=== PATIENT | male | born 1955 | race Two or more races ===

== ENCOUNTER 2019-05-04 09:35 | Emergency (ER) | payer MEDICAID ==
[~2019-05-04] VITALS: Ht 167.6 cm; Wt 83.9 kg
[2019-05-04] MEDS ORDERED: SODIUM CHLORIDE 0.9% 1,000 ML IV ONE (11:35)
[2019-05-04] MEDS ORDERED: LEVOFLOXACIN 750MG 150 ML IV ONE (12:00)
[2019-05-04 12:11] LABS: Basophils # (auto) 0 uL; Basophils % (auto) 0.2 % (0.0-2.0); Eosinophils # (auto) 0 uL; Hematocrit 46.4 % (41.0-53.0); Hemoglobin 15.8 g/dL (13.5-17.5); Lymphocytes # (auto) 0.4 uL; Lymphocytes % (auto) 4.9 % (10.0-50.0); Mean Corpuscular Hemoglobin 30.2 pg (28.0-32.0); Monocytes # (auto) 0.4 uL; Monocytes % (auto) 5.7 % (0.0-12.0); Neutrophils # (auto) 6.7 uL; Neutrophils % (auto) 89.2 % (37.0-80.0); Platelet Count (auto) 143 10^3/uL (140-450); Red Blood Cells 5.22 10^6/uL (4.5-5.90); Red Cell Distribution Width 13.3 % (11.8-14.3); White Blood Cell 7.5 10^3/uL (4.4-10.8)
[2019-05-04 12:29] LABS: Albumin 3.1 g/dL (3.4-5.0); Calcium 7.7 mg/dL (8.5-10.1); Potassium 3.5 mmol/L (3.5-5.1)
[2019-05-04 12:34] LABS: BUN/Creatinine Ratio 21.4; Bilirubin, Total 0.9 mg/dL (0.2-1.0); Total Protein 7.1 g/dL (6.4-8.2)
[2019-05-04] MEDS ORDERED: methylPREDNISolone SOD SUCC 125 MG/2 ML VL IV ONE (13:45)
[2019-05-04] MEDS ORDERED: ACETAMINOPHEN 500 MG TAB PO ONE (13:45)
[2019-05-04 14:30] VITALS: BP 112/73
== END 2019-05-04 16:40 | disposition home or self-care (01) ==
LOC: ER 09:35
DX: J20.9 Acute bronchitis, unspecified (principal); I10 Essential (primary) hypertension
CPT/HCPCS: 36415; 71045; 80053; 83605; 85025; 87040; 93005; 96365; 96366; 96375; 99284; J1956; J2930; J7030

== ENCOUNTER 2019-05-10 08:26 | Emergency (ER) | payer MEDICAID ==
[~2019-05-10] VITALS: Ht 167.6 cm; Wt 83.9 kg
[2019-05-10 09:30] LABS: Urine Bacteria NONE SEEN /hpf (None Seen); Urine Blood 1+ /uL (Negative); Urine Specific Gravity 1.006 (1.001-1.035); Urine WBC 1 /hpf (0 - 3)
[2019-05-10 11:00] LABS: Basophils # (auto) 0 uL; Basophils % (auto) 0.2 % (0.0-2.0); Eosinophils # (auto) 0.1 uL; Eosinophils % (auto) 0.5 % (0.0-7.0); Hematocrit 40.1 % (41.0-53.0); Hemoglobin 13.5 g/dL (13.5-17.5); Lymphocytes # (auto) 0.8 uL; Lymphocytes % (auto) 6.6 % (10.0-50.0); Mean Corpuscular Hemoglobin 29.8 pg (28.0-32.0); Mean Corpuscular Hgb Conc. 33.7 g/dL (32.0-36.0); Mean Corpuscular Volume 88.5 fL (80.0-100.0); Neutrophils # (auto) 10.8 uL; Neutrophils % (auto) 84.7 % (37.0-80.0); Platelet Count (auto) 274 10^3/uL (140-450); Red Blood Cells 4.53 10^6/uL (4.5-5.90); Red Cell Distribution Width 13.8 % (11.8-14.3); White Blood Cell 12.8 10^3/uL (4.4-10.8)
[2019-05-10 11:06] LABS: Potassium 3.9 mmol/L (3.5-5.1)
[2019-05-10 11:13] LABS: Albumin 2.3 g/dL (3.4-5.0); BUN/Creatinine Ratio 12.5; Bilirubin, Total 0.8 mg/dL (0.2-1.0); Calcium 8.4 mg/dL (8.5-10.1); Magnesium 2.4 mg/dL (1.6-2.6); Total Protein 6.9 g/dL (6.4-8.2)
[2019-05-10 11:24] VITALS: BP 141/46
== END 2019-05-10 11:46 | disposition home or self-care (01) ==
LOC: ER 08:29
DX: N40.1 Benign prostatic hyperplasia with lower urinary tract symptoms (principal); R33.8 Other retention of urine; E44.0 Moderate protein-calorie malnutrition; I10 Essential (primary) hypertension; Z68.29 Body mass index [BMI] 29.0-29.9, adult
CPT/HCPCS: 36415; 51702; 80053; 81001; 83690; 83735; 85025

== ENCOUNTER 2023-11-03 10:39 | Inpatient (IN) | payer MEDICAID ==
[~2023-11-03] VITALS: Ht 165.1 cm; Wt 92.2 kg
[~2023-11-03 10:39] MED LIST: LISI20TA56 PO; POTA-180 PO; SACC250C PO; TAMS0.4C36 PO; VANC125C3 PO
[2023-11-03 11:37] LABS: Hematocrit 48.5 % (41.0-53.0); Hemoglobin 16.1 g/dL (13.5-17.5); Mean Corpuscular Hemoglobin 29.8 pg (28.0-32.0); Mean Corpuscular Hgb Conc. 33.3 g/dL (32.0-36.0); Mean Corpuscular Volume 89.6 fL (80.0-100.0); Red Blood Cells 5.42 10^6/uL (4.5-5.90); Red Cell Distribution Width 13.4 % (11.8-14.3); White Blood Cell 11.7 10^3/uL (4.4-10.8)
[2023-11-03] MEDS: MECLIZINE HCL 25 MG TAB PO ONE (11:40)
[2023-11-03 11:42] LABS: Basophils % (manual) 0 (0.0-2.0); Blast Cells 0; Eosinophils % (manual) 0 (0-7); Metamyelocytes % 0; Myelocytes % 0; Promyelocytes % 0; Reactive Lymphocytes 0
[2023-11-03 11:44] LABS: Chloride 109 mmol/L (98-107); Potassium 4.2 mmol/L (3.5-5.1); Sodium 141 mmol/L (136-145)
[2023-11-03 11:45] LABS: Anion Gap 7 (5-15); Calcium 9.5 mg/dL (8.5-10.1); Carbon Dioxide 25 mmol/L (20-30)
[2023-11-03 11:50] LABS: BUN/Creatinine Ratio 15.8 (10.0-20.0); Blood Urea Nitrogen 12 mg/dL (9-23); Glucose 159 mg/dL (74-106)
[2023-11-03 12:26] LABS: Band Neutrophils % (manual) 1; Lymphocytes % (manual) 6 (10.0-50.0); Monocytes % (manual) 5 (0-12); Platelet Estimate Adequate; RBC Morphology Normal
[2023-11-03 12:30] VITALS: PULSE 73; RESP 15; O2SAT 93
[2023-11-03] MEDS ORDERED: ALBUTEROL SULF 2.5 MG/0.5ML(0.5%) NEB SOLN NEB PRN (12:45)
[2023-11-03] MEDS ORDERED: ACETAMINOPHEN 325 MG TAB PO PRN (12:45)
[2023-11-03] MEDS ORDERED: hydrALAZINE HCL 20 MG/ML VL IV PRN (12:45)
[2023-11-03] MEDS ORDERED: MORPHINE SULFATE INJ 2 MG/ml SYRG IV PRN (12:45)
[2023-11-03] MEDS ORDERED: ONDANSETRON HCL 4 MG/2 ML VIAL IV PRN (12:45)
[2023-11-03] MEDS ORDERED: NITROGLYCERIN 0.4 MG SL TAB SL PRN (12:45)
[2023-11-03 13:06] VITALS: BP 169/81; PULSE 74; RESP 18; O2SAT 93
[2023-11-03 13:10] VITALS: O2SAT 93
[2023-11-03 19:20] VITALS: PULSE 97; RESP 20; O2SAT 90
[2023-11-03 22:11] VITALS: PULSE 77; RESP 18; O2SAT 96
[2023-11-03] MEDS ORDERED: ATOR20TA50 PO (22:39)
[2023-11-03] MEDS: ATORVASTATIN 20 MG TAB PO SCH (22:51)
[2023-11-03] MEDS: MONTELUKAST SODIUM 10 MG TAB PO SCH (22:52)
[2023-11-03 23:05] VITALS: O2SAT 94
[2023-11-04] VITALS (8 sets, daily range): BP systolic 143–155; BP diastolic 66–91; PULSE 56–93; RESP 12–56; TEMP 98.2–98.6; O2SAT 93–98
[2023-11-04 06:44] LABS: Chloride 109 mmol/L (98-107); Potassium 3.9 mmol/L (3.5-5.1); Sodium 141 mmol/L (136-145)
[2023-11-04 06:45] LABS: Anion Gap 4 (5-15); Carbon Dioxide 28 mmol/L (20-30)
[2023-11-04 06:46] LABS: Calcium 9.2 mg/dL (8.5-10.1)
[2023-11-04 06:50] LABS: Glucose 114 mg/dL (74-106)
[2023-11-04 06:51] LABS: BUN/Creatinine Ratio 16.5 (10.0-20.0); Blood Urea Nitrogen 13 mg/dL (9-23)
[2023-11-04] MEDS: LISINOPRIL 20 MG TAB PO SCH (09:18)
[2023-11-04] MEDS: FINASTERIDE 5 MG TAB PO SCH (09:18)
[2023-11-04] MEDS ORDERED: AMLO1TAB23 PO (10:26)
== END 2023-11-04 17:00 | disposition home or self-care (01) | DRG 199 ==
LOC: ER 10:39 → TELE 12:39 → TELE-EAST 21:55
PROVIDERS: ADMIT Nurse Practitioner; ATTEND Nurse Practitioner
DX: I16.9 Hypertensive crisis, unspecified (principal); J44.89 Other specified chronic obstructive pulmonary disease; I10 Essential (primary) hypertension; R73.03 Prediabetes; Z88.1 Allergy status to other antibiotic agents
CPT/HCPCS: 36415; 70450; 80048; 82962; 84484; 85007; 85027; G0378

== ENCOUNTER 2023-11-08 08:47 | Emergency (ER) | payer MEDICAID ==
[~2023-11-08] VITALS: Ht 162.6 cm; Wt 89.9 kg
[~2023-11-08 08:47] MED LIST changes: +AMLO1TAB23 PO; +ATOR20TA50 PO; -SACC250C PO; -VANC125C3 PO
[2023-11-08 09:31] VITALS: BP 132/83; PULSE 90; RESP 18; TEMP 98.9; O2SAT 97
[2023-11-08] MEDS: HYDROcodone-ACET 5/325MG TAB PO ONE (09:48)
[2023-11-08] MEDS ORDERED: ACET-1080 PO (10:07)
== END 2023-11-08 10:14 | disposition home or self-care (01) ==
LOC: ER 08:47
DX: R51.9 Headache, unspecified (principal); J45.909 Unspecified asthma, uncomplicated; J44.9 Chronic obstructive pulmonary disease, unspecified; I10 Essential (primary) hypertension; Z88.1 Allergy status to other antibiotic agents